=== PATIENT | male | born 1960 | race Caucasian/White ===

== ENCOUNTER 2016-07-05 20:53 | Emergency (ER) | payer OTHER ==
[~2016-07-05] VITALS: Ht 172.7 cm; Wt 104.0 kg
[2016-07-05 22:25] VITALS: BP 145/89
== END 2016-07-05 23:14 | disposition home or self-care (01) ==
LOC: EMS 20:55
DX: B02.9 Zoster without complications (principal); M54.5 Low back pain
CPT/HCPCS: 99283

== ENCOUNTER 2019-03-29 11:46 | Emergency (ER) | payer SELFPAY ==
[~2019-03-29] VITALS: Ht 172.7 cm; Wt 104.5 kg
[2019-03-29] MEDS ORDERED: CYCLOBENZAPRINE HCL 10 MG TABLET PO ONE (12:30)
[2019-03-29] MEDS ORDERED: LIDOCAINE 5% TRANSDERMAL PATCH TD ONE (12:30)
[2019-03-29 13:30] VITALS: BP 136/79
== END 2019-03-29 13:20 | disposition home or self-care (01) ==
LOC: EMS 11:46
DX: M54.5 Low back pain (principal)